=== PATIENT | female | born 1995 | race Caucasian/White ===

== ENCOUNTER 2017-11-16 17:36 | Emergency (ER) | END 2017-11-16 22:40 | disposition home or self-care (01) ==

== ENCOUNTER 2018-09-09 16:55 | Outpatient (CLI) | payer MEDICAID ==
[~2018-09-09 16:55] MED LIST: IBUP-1545 PO; PERCOCET PO; PNV11TAB PO
--- NOTE | 2018-09-09 19:53 | TRIAGE ---
OB Triage Datetime Report Generated by CPN: 09/09/2018 19:53 Datetime: 09/09/2018 19:04 Stage of : OB Triage Datetime: 09/09/2018 18:04 Labor Evaluation Frequency: 0 Monitor Mode: External Pattern: Normal: <= 5 Contractions in 10 Minutes Resting Tone [place]: Relaxed Heart Rate FHR Baseline Rate: 145 Monitor Mode: External US Variability: Moderate 6-25 bpm Accelerations: 10X10 Decelerations: None Category: Category I Pain Assessment Pain Scale: 0 Pain Presence: None/Denies Pain Type: N/A Pain Goal: 3 Pain Relief Measures: Comfort Measures Datetime: 09/09/2018 17:15 Stage of : OB Triage Datetime: 09/09/2018 17:04 Stage of : OB Triage Assessment Type: Triage Maternal Assessment Level of Consciousness: Keenly Alert, Responsive DTR's/Clonus: DTRs 2+; No Clonus Headache: Denies Blurred Vision: No Respiratory Effort: Unlabored; Regular Rhythm; Equal Expansion Breath Sounds, Left: Clear and Equal Breath Sounds, Right: Clear and Equal Nausea/Vomiting: Denies RUQ Epigastric Pain: Denies Facial Edema: None Temperature Route: Axillary Fall Risk Assessment History of Falling: (0) No Secondary Diagnosis: (0) No Ambulatory Aid: (0) Bedrest/Nurse Assist IV Therapy: (0) No Gait: (0) Normal/Bedrest/Immobile Mental Status: (0) Oriented to Own Ability Fall Score: 0 Fall Risk Score Definition: No Risk: No action required Monitor Mode: External Pattern: Normal: <= 5 Contractions in 10 Minutes Resting Tone [place]: Relaxed Heart Rate FHR Baseline Rate: 150 Monitor Mode: External US Variability: Moderate 6-25 bpm Accelerations: None Pain Assessment Pain Scale: 6 Pain Presence: Intermittent Pain Type: Ache Pain Location: Back Pain Goal: 3 Pain Relief Measures: Comfort Measures Datetime: 09/09/2018 17:02 Time of Arrival: 09/09/2018 16:40 EGA: 22.2 Arrived By: Ambulatory Arrived From: Home Chief Complaint: C/O BACK PAIN WHEN WALKING OR BENDING, DENIES BLEEDING OR LEAKING Movement: Present Contractions: Denies/Absent Rupture of Membranes: Denies Vaginal Bleeding: None Vaginal Discharge: Denies Recent Sexual Intercouse: Denies Abdominal Trauma: Not Applicable Patient Complaints: Back Pain Time Provider Notified: 09/09/2018 17:00 Provider Notified: MATTI Initial Plan: MONITOR, U/A C_S, CL
--- NOTE | 2018-09-09 20:21 | PN ---
Triage Information Date/Time Reason for visit: Back pain Weeks of Gestation Patient is a 22-year-old 3 para 1 at 22 weeks and 2 days of gestation with estimated date of delivery January 17, 2019 She presents with chief complaint of back pain Patient reports positive movement, denies vaginal bleeding or leaking fluid, denies uterine contractions /Para 3 para 1 Diabetes: none Hypertention: none Objective Heart Rate: 140's Heart Rate Comments heart rate tracing appropriate for gestational age Contractions: None Results/Medications Results 24 hrs Laboratory Tests Test 09/09/18 17:00 Urine Color YELLOW Urine Clarity SLIGHTLY CLOUDY A Urine pH 8.0 Urine Specific [place] 1.021 Urine Ketones 1+ H Urine Nitrite NEGATIVE Urine Bilirubin NEGATIVE Urine Urobilinogen NEGATIVE Urine Leukocyte Esterase 1+ H Urine Microscopic RBC 1 Urine Microscopic WBC 2 Urine Squamous Epithelial Cells MODERATE Urine Bacteria FEW A Urine Mucus FEW A Urine Hemoglobin NEGATIVE Urine Glucose NEGATIVE Urine Total Protein NEGATIVE Imaging Results PROCEDURE: Obstetric ultrasound CLINICAL INDICATION: Pain , labor TECHNIQUE: Multiple transverse and longitudinal grayscale images of the pelvis were obtained transabdominally and transvaginally.. COMPARISON: None FINDINGS: The cervix is closed with a length of 3.6 cm. There is a single live intrauterine gestation. Cardiac activity is present with 144 beats per minute. There is a vertex presentation. The placenta is posterior. There is no evidence for an abruption or placenta previa. RPTAT: AA IMPRESSION: Cervix length measures 3.6 cm. .Yuan Reynolds MD MD Date Time Electronically viewed and signed by .Yuan Reynolds MD, on 09/09/2018 17:52 .S/ CC: BINA AGOSTO MD [id number] Disposition: Discharge Assessment/Plan Patient instructed to increase fluid intake Patient instructed to follow-up with [facility] in 1 to 2 days DIANNA WALDRON MD Sep 09, 2018 20:21
== END 2018-09-09 19:25 | disposition home or self-care (01) ==
LOC: OBT 16:55 → L-D 16:57 → OBT 19:25
PROVIDERS: ATTEND Obstetrics & Gynecology
DX: O26.92 Pregnancy related conditions, unspecified, second trimester (principal); Z3A.22 22 weeks gestation of pregnancy; M54.9 Dorsalgia, unspecified
CPT/HCPCS: 76817; 81001; 87086; Z7500; Z7610; G0463